=== PATIENT | male | born 1995 | race Caucasian/White ===

== ENCOUNTER 2019-04-06 01:26 | Emergency (ER) | payer BC, OTHER ==
--- NOTE | 2019-04-06 03:09 | RADIOLOGY REPORT (SQ) ---
EXAM DESCRIPTION: XR ABDOMEN 1 VIEW (KUB) COMPLETED DATE/TME: 04/06/2019 00:00 CLINICAL HISTORY: 23 years, Male, abd pain/ constipation COMPARISON: None. NUMBER OF VIEWS: 2 TECHNIQUE: AP abdomen LIMITATIONS: None. FINDINGS: The bowel gas pattern is nonspecific. Evaluation for free air limited on a supine view. Abundant gas and stool in the colon IMPRESSION: Abundant gas and stool in the colon copyright 2010 [employer]- All Rights Reserved
[2019-04-06] MEDS ORDERED: MAGNESIUM CITRATE 296 ML BOTTLE PO ONE (03:54)
--- NOTE | 2019-04-06 03:58 | ER Document Report ---
ED General - General Chief Complaint: Abdominal Pain Stated Complaint: STOMACH PAIN Time Seen by Provider: 04/06/19 03:38 Primary Care Provider: ANITA WATSON MD [Primary Care Provider] - Follow up as needed TRAVEL OUTSIDE OF THE [place] IN LAST 30 DAYS: No - HPI Notes: Patient is a 23-year-old male that presents to the emergency department for chief complaint of abdominal pain. Patient reports abdominal pain for the last week. He describes it as a diffuse crampy pain. He states that pain migrates from his epigastrium down to the lower quadrants and does not seem to follow any particular pattern. He states the pain is worse with sitting and relieved some when he is not being active. He also states he has had loose stools for the last few days in small quantities and has not had a good solid bowel movement in over a week. He denies history of constipation in the past. He did try stool softeners on Sunday and with minimal change in bowel habits. He denies associated fever vomiting. He denies chronic pain medications. Past Medical History: Negative Past Surgical History: Negative Social History: Denies drugs alcohol and tobacco Family History: Reviewed and noncontributory for presenting illness Allergies: Reviewed, see documented allergy list. REVIEW OF SYSTEMS: CONSTITUTIONAL : No fever No chills No diaphoresis No recent illness EENT: No vision changes No congestion No sore throat CARDIOVASCULAR: No chest pain No palpitations RESPIRATORY: No shortness of breath No cough No difficulty breathing GASTROINTESTINAL: abdominal pain Constipation No nausea No vomiting No diarrhea GENITOURINARY: No dysuria No hematuria No difficulty urinating MUSCULOSKELETAL: No back pain No leg pain No arm pain SKIN: No rashes No lesions LYMPHATIC: No swollen, enlarged glands. NEUROLOGICAL: No lightheadedness No headache No weakness No paresthesias PSYCHIATRIC: No anxiety No depression PHYSICAL EXAMINATION: Vital signs reviewed, nursing noted reviewed. GENERAL: Well-appearing, obese and in no acute distress. HEAD: Atraumatic, normocephalic. EYES: Eyes appear normal, extraocular movements intact, sclera anicteric, conjunctiva are normal. ENT: nares patent, oropharynx clear without exudates. Moist mucous membranes. NECK: Normal range of motion, supple without lymphadenopathy LUNGS: Breath sounds clear to auscultation bilaterally and equal. No wheezes rales or rhonchi. HEART: Regular rate and rhythm without murmurs ABDOMEN: Soft, nontender, normoactive bowel sounds. No rebound, guarding, or rigidity. No masses appreciated. EXTREMITIES: Nontender, good range of motion, no pitting or edema. NEUROLOGICAL: No focal neurological deficits. Moves all extremities spontaneous ly Motor and sensory grossly intact on exam. PSYCH: Normal mood, normal affect. SKIN: Warm, Dry, normal turgor, no rashes or lesions noted on exposed skin Past Medical History - Social History Smoking Status: Never Smoker Family History: Reviewed & Not Pertinent Physical Exam - Vital signs Vitals: Temp Pulse Resp BP Pulse Ox 98.2 F 67 18 150/69 H 98 04/06/19 01:04/06/19 01:04/06/19 01:04/06/19 01:04/06/19 01:29 Course - Re-evaluation Re-evalutation: 04/06/19 03:57 Vitals reviewed. Nursing notes reviewed. Patient is nontoxic in appearance. Abdominal exam is soft with no focal tenderness. X-ray was ordered in triage which shows a large amount of stool and gas. Patient's symptoms do sound consistent with acute constipation. He was given a bottle of magnesium citrate and told to begin using MiraLAX at home in combination with his stool softeners. Patient will follow with his primary care for reevaluation if symptoms are unchanged. He will return for new or worsening symptoms. Patient stable at discharge. - Vital Signs Vital signs: Temp Pulse Resp BP Pulse Ox 98.2 F 67 18 150/69 H 98 04/06/19 01:04/06/19 01:04/06/19 01:04/06/19 01:04/06/19 01:29 Discharge - Discharge Clinical Impression: Elevated blood pressure reading Constipated Qualifiers: Constipation type: other constipation type Qualified Code(s): K59.09 - Other constipation Condition: Stable Disposition: HOME, SELF-CARE Instructions: Constipation ([facility]) Additional Instructions: Please return to the emergency department if you have any worsening, or concern of your symptoms. Please return to the emergency department if you develop fever, difficulty breathing, severe abdominal pain, or ongoing vomiting. Please follow-up with your primary care physician in 2-3 days and any other recommended physicians. If prescribed, take all medications as directed. If you have any questions or concerns do not hesitate to return the emergency department for evaluation. Begin to use MiraLAX for constipation at home as directed Forms: Elevated Blood Pressure Referrals: ANITA WATSON MD [Primary Care Provider] - Follow up as needed
[2019-04-06 04:27] VITALS: BP 140/66
== END 2019-04-06 04:26 | disposition home or self-care (01) ==
LOC: ER 01:26
DX: K59.09 Other constipation (principal); R03.0 Elevated blood-pressure reading, without diagnosis of hypertension; R10.9 Unspecified abdominal pain
CPT/HCPCS: 99284; 74018; J3490